=== PATIENT | female | born 1975 | race Caucasian/White ===

== ENCOUNTER 2019-03-11 06:52 | Day surgery (SDC) | payer OTHER ==
[2019-03-11] MEDS ORDERED: Lidocaine 1% PF 5 ML VIAL ONE (10:45)
[2019-03-11] MEDS ORDERED: PROPOFOL 200 MG/20 ML VIAL ONE (10:45)
--- NOTE | 2019-03-11 13:25 | OP ---
DATE OF PROCEDURE: 03/11/2019 PROCEDURE PERFORMED: Colonoscopy with biopsy. INDICATION FOR PROCEDURE: Generalized abdominal pain, hematochezia. DESCRIPTION OF PROCEDURE: After the risks and benefits of the procedure were explained to the patient including risks of bleeding, infection, perforation, reactions to anesthesia, aspiration and/or pain, informed consent was obtained. The patient was then taken to the endoscopy suite where she was maneuvered into the left lateral decubitus position, followed by administration of anesthesia via propofol and anesthesia support. Once the patient was adequately sedated, a digital rectal examination was performed followed by introduction of the standard colonoscope into the rectum and advanced to the cecum/terminal ileum with some difficulty due to tortuosity of the sigmoid colon. The quality of the prep was fair with a moderate amount of retained semi-solid adherent stool throughout the entire colon limiting visualization of the colonic mucosa somewhat. Mucosal lesions less than 5 mm in size could have been missed. The patient tolerated the procedure well with no immediate perioperative complications. Upon conclusion of the procedure, all equipment was removed from the patient and she was transferred to Day Stay in satisfactory condition. FINDINGS: Digital rectal exam: Small external hemorrhoids were seen on external examination with mild amount of skin maceration at the anal orifice. Colon findings: A [id number] amount of retained semisolid adherent stool was seen throughout the entire colon limiting visualization of the colonic mucosa. However with aggressive irrigation and suctioning, visualization of the colonic mucosa could be achieved to evaluate for lesions greater than 5 mm in size. Of the mucosa seen, increased swelling and erythema was seen within the terminal ileum with inability to intubate the terminal ileum with the colonoscope. Biopsies were carefully taken from the outside of the ileocecal valve and as well as into the terminal ileum itself and placed in a jar for further evaluation. Normal-appearing mucosa was seen at the appendiceal orifice and within the cecum itself, although there may have been some mild mucosal erythema in the cecum. Increased mild mucosal erythema with mild loss of vascularity was seen in the ascending colon, but did not exhibit display any evidence of ulcerations or mass lesions. However, at approximately 65 cm past the anal verge, significantly increased mucosal erythema in addition to multiple polypoid structures were seen within the colonic mucosa. There was also a 6 mm x 3 mm clean based ulceration that was seen along the colonic wall. This extended for approximately 5 to 10 cm, then abruptly changed back to more normal-appearing mucosa. Normal-appearing mucosa was then seen from 55 cm to the distal transverse and descending colons, mildly increased mucosal erythema was seen in the distal sigmoid colon, but significantly increased in coloration upon reaching the rectum. Also within the rectum, there was loss of vascularity, increased granularity of the tissue as well as small pinpoint/punctate ulcerations. However, there was no evidence of active/recent bleeding. Given the higher likelihood of inflammatory bowel disease, given the findings seen during this colonoscopy, random biopsies were taken from the right colon, the transverse colon (including the polypoid structures at 65 cm), left colon including the sigmoid and rectum for further evaluation. On rectal retroflexion, there was no abnormality seen other than the increased mucosal erythema within the rectum. IMPRESSION: 1. Increased edema within the terminal ileum as well as increased erythema as well as erythema and polypoid structures at 65 cm and increased mucosal erythema in the rectum concerning for the presence of Crohn disease with normal-appearing mucosa interspersed in between. 2. Significant proctitis, most likely contributing to the patient's hematochezia secondary to #1. RECOMMENDATIONS: 1. We will follow up on the biopsy results with further management guided by pathology report. 2. I would recommend starting the patient on prednisone 40 mg daily in light of probable inflammatory bowel disease. 3. I would obtain infectious stool studies for possible infectious pathogen causing the above findings (albeit less likely). 4. We are considering placing the patient on mesalamine as an outpatient 2.4 g daily based on biopsy results. 5. We would recommend obtaining a CBC, comprehensive metabolic panel, ESR, CRP, thiopurine methyltransferase (TPMT) levels, hepatitis B serologies, hepatitis C serologies in anticipation of possible immunosuppression. 6. We would have the patient follow up in the GI clinic in 3 weeks. Job ID: [id number]
== END 2019-03-11 13:18 ==
LOC: SDC 06:52
PROVIDERS: ATTEND Internal Medicine
PROC: 0DBE8ZX Excision of Large Intestine, Via Natural or Artificial Opening Endoscopic, Diagnostic (ICD-10-PCS; principal; 2019-03-11)
DX: K52.9 Noninfective gastroenteritis and colitis, unspecified (principal); K64.4 Residual hemorrhoidal skin tags; K62.89 Other specified diseases of anus and rectum; I10 Essential (primary) hypertension; Z80.0 Family history of malignant neoplasm of digestive organs; Z88.0 Allergy status to penicillin; Z88.5 Allergy status to narcotic agent
CPT/HCPCS: 88305; 88312; J2001; J2704